=== PATIENT | female | born 1995 | race Caucasian/White ===

== ENCOUNTER 2023-02-01 12:28 | Emergency (ER) | payer SELFPAY ==
[2023-02-01] MEDS ORDERED: Dexamethasone 10 MG/ML VIAL ONE (13:32)
== END 2023-02-01 13:40 | disposition home or self-care (01) ==
LOC: ERS 12:28
DX: R21 Rash and other nonspecific skin eruption (principal); Z87.891 Personal history of nicotine dependence
CPT/HCPCS: 99282; J1100